=== PATIENT | male | born 1960 | race Caucasian/White ===

== ENCOUNTER 2023-02-08 12:38 | Emergency (ER) | payer OTHER ==
[~2023-02-08] VITALS: Ht 180.3 cm; Wt 129.3 kg
[2023-02-08] MEDS ORDERED: TRAM50 PO (16:15)
[2023-02-08 18:03] VITALS: BP 158/80
== END 2023-02-08 18:04 | disposition home or self-care (01) ==
LOC: ER 12:38
DX: M46.1 Sacroiliitis, not elsewhere classified (principal); M54.42 Lumbago with sciatica, left side; M62.830 Muscle spasm of back; I10 Essential (primary) hypertension; E11.9 Type 2 diabetes mellitus without complications
CPT/HCPCS: 72131; 72170; 96374; 96375; 99284-25; A9270; J1885; J2920; J3360